=== PATIENT | male | born 1970 | race Caucasian/White ===

== ENCOUNTER → 2019-12-05 | Outpatient (CLI) | payer MEDICAID ==
[2019-12-05 10:24] LABS: ABSOLUTE EOSINOPHILS # (AUTO) 0.1 10^3/uL (0.0-0.6); ABSOLUTE MONOCYTES (AUTO) 0.4 10^3/uL (0.1-1.4); ABSOLUTE NEUT (AUTO) 6.1 10^3/uL (1.7-8.2); BASOPHILS % (AUTO) 0.4 % (0-2); EOSINOPHILS % (AUTO) 1.1 % (0-6); HEMOGLOBIN 15.5 g/dL (13.5-17.0); LYMPHOCYTES % (AUTO) 31.2 % (13-45); MEAN CORPUSCULAR HGB CONC 34.4 g/dL (32.0-36.0); MEAN CORPUSCULAR VOLUME 90 fl (80-97); MONOCYTES % (AUTO) 4.3 % (3-13); PLATELET COUNT 240 10^3/uL (150-450); RED BLOOD COUNT 4.99 10^6/uL (4.35-5.55); RED CELL DISTRIBUTION WIDTH 12.9 % (11.5-14.0); TOTAL CELLS COUNTED % (AUTO) 100 %; WHITE BLOOD COUNT 9.7 10^3/uL (4.0-10.5)
[2019-12-05 10:42] LABS: ALBUMIN 4.1 g/dL (3.5-5.0); ALKALINE PHOSPHATASE 123 U/L (38-126); ANION GAP 11 (5-19); ASPARTATE AMINO TRANSFERASE 25 U/L (17-59); BILIRUBIN,DIRECT 0.3 mg/dL (0.0-0.4); BILIRUBIN,TOTAL 0.7 mg/dL (0.2-1.3); BLOOD UREA NITROGEN 10 mg/dL (7-20); CALCIUM 9.6 mg/dL (8.4-10.2); CARBON DIOXIDE 29 mmol/L (22-30); CHLORIDE 98 mmol/L (98-107); CHOLESTEROL 200.62 mg/dL (0-200); GLUCOSE 332 mg/dL (75-110); POTASSIUM 4.3 mmol/L (3.6-5.0); TOTAL PROTEIN 7.1 g/dL (6.3-8.2); TRIGLYCERIDES 275 mg/dL (<150)
[2019-12-05 10:54] LABS: DIRECT LDL 131 mg/dL (<100)
[2019-12-06 13:37] LABS: CREATININE URINE 105.4 mg/dL (Not Estab.); MICROALBUMIN URINE 18.8 ug/mL (Not Estab.)
== END ==
LOC: OD 09:03
PROVIDERS: ATTEND Family Medicine Geriatric Medicine
DX: E11.9 Type 2 diabetes mellitus without complications (principal); E55.9 Vitamin D deficiency, unspecified; R94.5 Abnormal results of liver function studies; E66.3 Overweight; Z79.899 Other long term (current) drug therapy
CPT/HCPCS: 36415; 80053; 80061; 82043; 82570; 83036; 84443; 85025

== ENCOUNTER → 2020-01-30 | Outpatient (CLI) | payer MEDICAID ==
[2020-01-30 08:56] LABS: CHOLESTEROL 153.59 mg/dL (0-200); TRIGLYCERIDES 151 mg/dL (<150)
[2020-01-30 09:08] LABS: DIRECT LDL 95 mg/dL (<100)
[2020-01-30 09:14] LABS: VLDL CHOLESTEROL 30.2 mg/dL (10-31)
== END ==
LOC: OD 07:04
PROVIDERS: ATTEND Family Medicine Geriatric Medicine
DX: E78.5 Hyperlipidemia, unspecified (principal); Z79.899 Other long term (current) drug therapy
CPT/HCPCS: 36415; 80061; 84460

== ENCOUNTER → 2020-04-07 | Outpatient (CLI) | payer MEDICAID ==
[2020-04-07 08:31] LABS: CHOLESTEROL 110.57 mg/dL (0-200); TRIGLYCERIDES 92 mg/dL (<150)
[2020-04-07 08:42] LABS: DIRECT LDL 55 mg/dL (<100)
== END ==
LOC: OD 07:32
PROVIDERS: ATTEND Family Medicine Geriatric Medicine
DX: E11.9 Type 2 diabetes mellitus without complications (principal); E78.5 Hyperlipidemia, unspecified; Z79.899 Other long term (current) drug therapy
CPT/HCPCS: 36415; 80061; 83036; 84460

== ENCOUNTER → 2020-05-25 | Outpatient (CLI) | payer MEDICAID ==
[2020-05-25 09:23] LABS: ANION GAP 8 (5-19); BLOOD UREA NITROGEN 10 mg/dL (7-20); CALCIUM 9.1 mg/dL (8.4-10.2); CARBON DIOXIDE 29 mmol/L (22-30); CHLORIDE 102 mmol/L (98-107); GLUCOSE 100 mg/dL (75-110); POTASSIUM 4.4 mmol/L (3.6-5.0)
[2020-05-26 13:37] LABS: CREATININE URINE 126.2 mg/dL (Not Estab.); MICROALBUMIN URINE 11.8 ug/mL (Not Estab.)
== END ==
LOC: OD 07:41
PROVIDERS: ATTEND Family Medicine Geriatric Medicine
DX: I10 Essential (primary) hypertension (principal); E11.9 Type 2 diabetes mellitus without complications; Z79.899 Other long term (current) drug therapy
CPT/HCPCS: 36415; 80048; 82043; 82570

== ENCOUNTER 2020-10-28 13:47 | Day surgery (SDC) | payer MEDICAID ==
[~2020-10-28 13:47] MED LIST: DEXMEDETOMIDINE INJ 80 MCG/20 ML VIAL IV ONE; FENTANYL CITRATE INJ/PF 100 MCG/2 ML AMPUL ONE; MIDAZOLAM 2 MG/2 ML INJ ONE; PROPOFOL INJ 200 MG/20 ML VIAL IV ONE
[2020-10-28 14:44] LABS: HEMATOCRIT 39.7 % (37.9-51.0); HEMOGLOBIN 13.3 g/dL (13.5-17.0); MEAN CORPUSCULAR HEMOGLOBIN 29.4 pg (27.0-33.4); MEAN CORPUSCULAR HGB CONC 33.6 g/dL (32.0-36.0); MEAN CORPUSCULAR VOLUME 88 fl (80-97); PLATELET COUNT 353 10^3/uL (150-450); RED BLOOD COUNT 4.53 10^6/uL (4.35-5.55); RED CELL DISTRIBUTION WIDTH 14.5 % (11.5-14.0); WHITE BLOOD COUNT 12.1 10^3/uL (4.0-10.5)
[2020-10-28 15:02] LABS: ANION GAP 6 (5-19); BLOOD UREA NITROGEN 14 mg/dL (7-20); CALCIUM 9.2 mg/dL (8.4-10.2); CARBON DIOXIDE 26 mmol/L (22-30); CHLORIDE 104 mmol/L (98-107); GLUCOSE 101 mg/dL (75-110); POTASSIUM 4.3 mmol/L (3.6-5.0)
[2020-10-28] MEDS ORDERED: SUCCINYLCHOLINE CHLORIDE INJ 200 MG/10 ML VIAL ONE (15:04)
[2020-10-28] MEDS ORDERED: FENTANYL CITRATE INJ/PF 100 MCG/2 ML AMPUL ONE (15:11)
[2020-10-28] MEDS ORDERED: LIDOCAINE 0.5% INJ-PF (5 MG/ML) 50 ML SDV ONE (15:16)
[2020-10-28] MEDS ORDERED: BUPIVACAINE HCL 0.25 % INJ/PF (2.5 MG/1 ML) 30 ML VIAL ONE (15:16)
[2020-10-28] MEDS ORDERED: CEFAZOLIN INJ 1 GM VIAL ONE (15:55)
[2020-10-28] MEDS ORDERED: MORPHINE SULFATE 10 MG/ML INJ IV PRN (16:01)
[2020-10-28] MEDS ORDERED: DIPHENHYDRAMINE HCL 50 MG/ML VIAL IV PRN (16:01)
[2020-10-28] MEDS ORDERED: MEPERIDINE HCL/PF INJ 25 MG/1 ML DISP.SYRIN IV PRN (16:01)
[2020-10-28] MEDS ORDERED: ONDANSETRON HCL INJ/PF 4 MG/2 ML SDV IV PRN (16:01)
[2020-10-28] MEDS ORDERED: FENTANYL CITRATE INJ/PF 100 MCG/2 ML AMPUL IV PRN ×3 (16:01)
--- NOTE | 2020-10-28 16:35 | Discharge Summary ---
Discharge Summary (SDC) - Discharge Final Diagnosis: Large subcutaneous abscess left mid back Date of Surgery: 10/28/20 Discharge Date: 10/28/20 Condition: Good Treatment or Instructions: Apply a dry dressings as needed; patient follow-up [facility] for a nurse visit 10 AM, October 29 Prescriptions: Ketorolac Tromethamine [Toradol 10 mg Tablet] 10 mg PO Q6HP PRN #14 tablet PRN Reason: Referrals: BARBARA JARAMILLO MD [Primary Care Provider] - Discharge Diet: As Tolerated Discharge Activity: Activity As Tolerated Home Care Assistance: None Needed Report the Following to Your Physician Immediately: Shortness of Breath, Increase in Pain, Fever over 101 Degrees
--- NOTE | 2020-10-28 16:43 | Operative Report ---
Operative Report DATE OF SURGERY: 10/28/20 PREOPERATIVE DIAGNOSIS: 1. Large left upper back abscess. 2. Morbid obesity POSTOPERATIVE DIAGNOSIS: Same suspicious for MRSA OPERATION: Excisional debridement of large back abscess, placement of incisions and loop drains x2 SURGEON: BHAVANA RAYA ANESTHESIA: GA TISSUE REMOVED OR ALTERED: Pus, necrotic skin COMPLICATIONS: None ESTIMATED BLOOD LOSS: 20 cc INTRAOPERATIVE FINDINGS: See below PROCEDURE: The patient was taken from the preop and operating room where general anesthesia was induced. He was then placed in the prone position, arms elevated and protected, and back prepped and draped in sterile fashion with Betadine Surgical plan surgical timeout conducted. Findings were significant for a large area encompassing approximately 12 cm x 10 cm of erythema left of midline lower thoracic back. The open wound 1 cm in diameter was probed and found to communicate with a deeper pocket. There were several smaller satellite open wound wounds towards midline the erythematous. An ellipse was drawn on the skin approximately 2 x 4 cm in diameter. The skin was anesthetized 1% plain lidocaine. This was excised with a #10 blade down to subcutaneous tissue. We broke into a pocket of seropurulent material which was sent for Gram stain culture and sensitivity. We now use index finger to break up loculations in the subcutaneous space medially going towards the head and going towards the feet. The undermined pockets extended approximately 6 to 8 cm from the initial excisional wound. We made counterincisions x2, 1 approximately 8cm superior and medial to the initial wound and a second inferior and medial to the initial wound . Large loop Dwaine drains were placed through the counterincisions and tied in knots. We now irrigated all pockets thoroughly with the 2 L of saline. The entire complex packed with a full half-inch gauze packing. 4 x 4's applied and ABD pad applied. Patient tolerated the procedure well, rotated into the supine position, extubated, taken to recovery room in stable condition.
[2020-10-28] MEDS ORDERED: MORPHINE SULFATE 10 MG/ML INJ ONE (16:44)
[2020-10-28] MEDS ORDERED: ONDANSETRON HCL INJ/PF 4 MG/2 ML SDV ONE (16:53)
[2020-10-28] MEDS ORDERED: KETOROLAC TROMETHAMINE INJ/PF 30 MG/1 ML SDV ONE (17:35)
[2020-10-28] MEDS ORDERED: KETOROLAC TROMETHAMINE INJ/PF 30 MG/1 ML SDV IV ONE (17:45)
[2020-10-28 18:32] VITALS: BP 133/92
== END 2020-10-28 18:30 | disposition home or self-care (01) ==
LOC: OROUT 13:47
PROVIDERS: ATTEND Surgery
DX: L02.212 Cutaneous abscess of back [any part, except buttock and flank] (principal); Z20.828 Contact with and (suspected) exposure to other viral communicable diseases; G89.29 Other chronic pain; M54.9 Dorsalgia, unspecified; Z79.891 Long term (current) use of opiate analgesic; Z79.4 Long term (current) use of insulin; E11.9 Type 2 diabetes mellitus without complications; E78.00 Pure hypercholesterolemia, unspecified; E66.01 Morbid (severe) obesity due to excess calories; Z68.42 Body mass index [BMI] 45.0-49.9, adult; Z79.899 Other long term (current) drug therapy; Z87.891 Personal history of nicotine dependence; Z98.1 Arthrodesis status
CPT/HCPCS: 36415; 87070; 87205; 82962; 85027; 87635; 87075; 80048; 97597; J2250; J0690; J3010; J1885; J2270; J0330; J2405; J3490 ×2; J2704; C9803; 300; 87077

== ENCOUNTER → 2020-10-31 | Outpatient (CLI) | payer MEDICAID ==
[2020-10-31 12:44] LABS: CHOLESTEROL 123.27 mg/dL (0-200); TRIGLYCERIDES 161 mg/dL (<150)
[2020-10-31 12:55] LABS: DIRECT LDL 56 mg/dL (<100)
[2020-10-31 12:57] LABS: VLDL CHOLESTEROL 32.2 mg/dL (10-31)
== END ==
LOC: OD 11:53
PROVIDERS: ATTEND Family Medicine Geriatric Medicine
DX: E11.9 Type 2 diabetes mellitus without complications (principal); E78.5 Hyperlipidemia, unspecified; Z79.899 Other long term (current) drug therapy
CPT/HCPCS: 36415; 80061; 83036; 84460